=== PATIENT | male | born 1965 | race Caucasian/White ===

== ENCOUNTER 2017-07-12 12:32 | Emergency (ER) | payer BC ==
[~2017-07-12] VITALS: Ht 182.9 cm; Wt 136.4 kg
[~2017-07-12 12:32] MED LIST: ZITHROMAX 250M250 MG PO
[2017-07-12 12:38] VITALS: TEMP 98.6
[2017-07-12] MEDS ORDERED: PREDNISONE20 MG PO (16:02)
[2017-07-12] MEDS ORDERED: LEVAQUIN 5500 MG/TA1 PO (16:02)
[2017-07-12 16:05] VITALS: BP 145/100; PULSE 87
== END 2017-07-12 16:15 | disposition home or self-care (01) ==
LOC: COL.ER 12:32
DX: J18.9 Pneumonia, unspecified organism (principal); J98.01 Acute bronchospasm; Z87.01 Personal history of pneumonia (recurrent)